=== PATIENT | female | born 1960 | race American Indian/Alaskan Native ===

== ENCOUNTER 2016-06-07 09:52 | Emergency (ER) | payer MEDICARE ==
--- NOTE | 2016-06-07 10:28 | Emergency Department Report ---
Chief Complaint: Dyspnea/Respdistress Stated Complaint: DONG Time Seen by Provider: 06/07/16 10:22 - HPI History of Present Illness: Patient is a 55 y/o female with history of sleep apnea and HTN who presents due to SOB 2 week. Patient denies any chest pain, vomiting or diaphoresis. Patient states that she has had a URI for 1 week and started having SOB last night. - ROS Review of Systems: no chest pain, no vomiting, no diaphoresis, no wheezing - Exam Physical Exam: no audible wheezing, audible rhonchi MSE screening note: Focused history and physical exam performed. Due to findings the following was ordered: ED Disposition for MSE Condition: Stable
[2016-06-07 10:57] LABS: Basophils % (Auto) 0.8 % (0.0-1.8); Eosinophils % (Auto) 1.9 % (0.0-4.3); Hematocrit 41.8 % (30.3-42.9); Hemoglobin 14.3 gm/dl (10.1-14.3); Mean Corpuscular HGB Conc 34 % (30-34); Mean Corpuscular Hemoglobin 32 pg (28-32); Mean Corpuscular Volume 93 fl (79-97); Platelet Count 319 K/mm3 (140-440); Red Blood Count 4.51 M/mm3 (3.65-5.03); Red Cell Distribution Width 12.6 % (13.2-15.2); White Blood Count 5.5 K/mm3 (4.5-11.0)
[2016-06-07 11:11] LABS: Anion Gap 17 mmol/L; Blood Urea Nitrogen 7 mg/dL (7-17); Calcium 9.7 mg/dL (8.4-10.2); Carbon Dioxide 24 mmol/L (22-30); Chloride 104.8 mmol/L (98-107); Glucose 94 mg/dL (65-100); Potassium 4.1 mmol/L (3.6-5.0); Sodium 142 mmol/L (137-145)
[2016-06-07] MEDS ORDERED: DELTASONE PO ONE (15:14)
--- NOTE | 2016-06-07 15:22 | Emergency Department Report ---
HPI - General Chief Complaint: Dyspnea/Respdistress Time Seen by Provider: 06/07/16 14:34 - HPI HPI: Room 25 The patient is a 55-year-old female presenting with a chief complaint of shortness of breath. The patient states for 1 week she says shortness of breath that feels consistent with her COPD. The patient states she is using albuterol but has not helped. Patient is to call that is productive of yellow sputum. Patient has subjective fever and rhinorrhea. Today the patient began gasping for air and EMS was called. EMS administered albuterol nebulized the patient states she currently feels better. The patient states she had a normal stress test last week Location: Lungs Duration: [see above] Quality: Shortness of breath consistent with COPD Severity: Moderate Modifying factors: [see above] Context: [see above] Mode of transportation: [not driving] ED Past Medical Hx - Past Medical History Previous Medical History?: Yes Hx Hypertension: Yes Hx Asthma: Yes Hx COPD: Yes Additional medical history: CHRONIC BACK PAIN. HIGH CHOLESTEROL - Surgical History Past Surgical History?: Yes Additional Surgical History: hernia repair 1968 - Family History Family history: no significant - Social History Smoking Status: Former Smoker (none 30 days) Substance Use Type: Non Opiate Pain, Prescribed - Medications Home Medications: Home Medications Medication Instructions Recorded Confirmed Last Taken Type ALBUTEROL Inhaler [Proair] 1 puff IH 01/12/13 01/12/13 03/19/13 History Amlodipine Besylate [Norvasc] 5 mg PO DAILY 01/12/13 01/12/13 03/19/13 History Hydrochlorothiazide [Hctz] 50 mg PO QDAY 01/12/13 01/12/13 03/19/13 History Meloxicam/Irr Cntr-Irr Cmb #2 15 mg PO QDAY 01/12/13 01/12/13 03/19/13 History [Comfort Pac-Meloxicam Kit] Potassium Chloride [Klor-Con] 10 meq PO QDAY 01/12/13 01/12/13 03/19/13 History traMADol [Ultram 50 MG tab] 50 - 100 mg PO Q8HR PRN #30 tablet 01/13/13 Rx Cyclobenzaprine [Flexeril 10 MG 10 mg PO TID PRN #14 tablet 02/24/14 Unknown Rx TAB] Acetaminophen/Codeine 1 tab PO Q6H PRN #14 tab 04/22/14 Unknown Rx [Acetaminophen-Codeine #3 TAB] Clindamycin [Clindamycin CAP] 300 mg PO Q8H 7 Days 04/22/14 Unknown Rx Promethazine [Phenergan TAB] 25 mg PO Q6H PRN #14 tablet 09/10/14 Unknown Rx Pantoprazole [Protonix] 40 mg PO QDAY #20 tablet 09/16/14 Unknown Rx HYDROcodone/APAP 5-325 [[place] 1 each PO Q6HR PRN #14 tablet 10/19/14 Unknown Rx 5-325 mg TAB] Ondansetron [Zofran TAB] 4 mg PO Q8HR PRN #20 tablet 10/19/14 Unknown Rx Ibuprofen [Motrin 600 MG tab] 600 mg PO Q8H PRN #30 tablet 04/16/15 Unknown Rx traMADol [Ultram 50 MG tab] 50 mg PO Q6HR PRN #15 tablet 04/16/15 Unknown Rx ALBUTEROL Inhaler [ProAir HFA 2 puff IH QID PRN #1 inhalation 09/16/15 Unknown Rx Inhaler] Azithromycin [Zithromax TAB] 500 mg PO QDAY #5 tablet 09/16/15 Unknown Rx predniSONE [Deltasone] 20 mg PO QDAY #5 tab 09/16/15 Unknown Rx Albuterol Sulfate [Albuterol 0.63% 0.63 mg IH TID PRN #90 ml 06/07/16 Unknown Rx NEBS] Azithromycin [Zithromax Z-AZAM] 0 mg PO DAILY #6 tab 06/07/16 Unknown Rx Prednisone [predniSONE 10 mg 10 mg PO .TAPER #1 tab.ds.pk 06/07/16 Unknown Rx (6-Day Pack, 21 Tabs)] traMADol [Ultram] 50 mg PO Q6HR PRN #10 tablet 06/07/16 Unknown Rx ED Review of Systems ROS: Stated complaint: DONG Other details as noted in HPI Comment: All other systems reviewed and negative Constitutional: fever (subjective) Eyes: denies: eye pain, eye discharge, vision change ENT: congestion Respiratory: cough, shortness of breath, wheezing Cardiovascular: denies: palpitations Endocrine: no symptoms reported Gastrointestinal: denies: abdominal pain, nausea, diarrhea Musculoskeletal: denies: back pain, joint swelling, arthralgia Skin: denies: rash, lesions Neurological: denies: headache, weakness, paresthesias Psychiatric: denies: anxiety, depression Hematological/Lymphatic: denies: easy bleeding, easy bruising Physical Exam - Physical Exam Vital Signs: Vital Signs 06/07/16 10:31 Temperature 98.7 F Pulse Rate 94 H Respiratory 22 Rate Blood Pressure 112/85 O2 Sat by Pulse 99 Oximetry Physical Exam: GENERAL: The patient is well-developed well-nourished female sitting on stretcher not appearing to be in acute distress. [] HEENT: Normocephalic. Atraumatic. Extraocular motions are intact. Patient has moist mucous membranes. NECK: Supple. Trachea midline CHEST/LUNGS: Clear to auscultation. There is no respiratory distress noted. HEART/CARDIOVASCULAR: Regular. There is no tachycardia. There is no gallop rub or murmur. ABDOMEN: Abdomen is soft, nontender. Patient has normal bowel sounds. There is no abdominal distention. SKIN: There is no rash. There is no edema. There is no diaphoresis. NEURO: The patient is awake, alert, and oriented. The patient is cooperative. The patient has normal speech MUSCULOSKELETAL: There is no evidence of acute injury. ED Course Vital Signs 06/07/16 10:31 Temperature 98.7 F Pulse Rate 94 H Respiratory 22 Rate Blood Pressure 112/85 O2 Sat by Pulse 99 Oximetry ED Medical Decision Making - Lab Data Result diagrams: 06/07/16 10:36 06/07/16 10:36 Laboratory Tests 06/07/16 06/07/16 10:36 10:36 WBC 5.5 RBC 4.51 Hgb 14.3 Hct 41.8 MCV 93 MCH 32 MCHC 34 RDW 12.6 L Plt Count 319 Lymph % (Auto) 33.5 [place] % (Auto) 8.8 H Eos % (Auto) 1.9 Baso % (Auto) 0.8 Lymph # 1.8 [place] # 0.5 Eos # 0.1 Baso # 0.0 Seg Neutrophils % 55.0 Seg Neutrophils # 3.0 Sodium 142 Potassium 4.1 Chloride 104.8 Carbon Dioxide 24 Anion Gap 17 BUN 7 Creatinine 0.7 Estimated GFR > 60 BUN/Creatinine Ratio 10.00 Glucose 94 Calcium 9.7 Troponin T < 0.010 - EKG Data -: EKG Interpreted by Me EKG shows normal: sinus rhythm Rate: normal - EKG Data When compared to previous EKG there are: previous EKG unavailable Interpretation: normal EKG - Radiology Data Radiology results: image reviewed (chest x-ray) interpreted by me: Chest x-ray-no focal infiltrates, no pneumothorax - Differential Diagnosis pneumonia, COPD exacerbation, bronchitis Critical care attestation.: If time is entered above; I have spent that time in minutes in the direct care of this critically ill patient, excluding procedure time. ED Disposition Clinical Impression: Acute bronchitis, Shortness of breath, COPD exacerbation Disposition: DISCHARGED TO HOME OR SELFCARE Is pt being admited?: No Does the pt Need Aspirin: No Condition: Stable Instructions: Chronic Obstructive Pulmonary Disease (ED), Acute Bronchitis (ED) Additional Instructions: Return to the emergency department immediately should you develop worsening symptoms, fever, inability to tolerate food or liquid or any other concerns. Prescriptions: Albuterol Sulfate [Albuterol 0.63% NEBS] 0.63 mg IH TID PRN #90 ml PRN Reason: Wheezing Azithromycin [Zithromax Z-AZAM] 0 mg PO DAILY #6 tab Prednisone [predniSONE 10 mg (6-Day Pack, 21 Tabs)] 10 mg PO .TAPER #1 tab.ds.pk traMADol [Ultram] 50 mg PO Q6HR PRN #10 tablet PRN Reason: Pain Referrals: PRIMARY CARE, [Primary Care Provider] - 3-5 Days
[2016-06-07 16:53] VITALS: BP 132/92
--- NOTE | 2016-06-08 11:09 | XRay Report ---
ROUTINE CHEST, TWO VIEWS: HISTORY: Shortness of breath. The trachea, heart, mediastinal contour, lung jones and bony thorax are unremarkable. IMPRESSION: Unremarkable chest x-ray. No significant change since 09/15/15.
== END 2016-06-07 15:55 | disposition home or self-care (01) ==
LOC: ED 09:52
DX: J44.1 Chronic obstructive pulmonary disease with (acute) exacerbation (principal); J20.9 Acute bronchitis, unspecified; J45.909 Unspecified asthma, uncomplicated; I10 Essential (primary) hypertension; G89.29 Other chronic pain; E78.00 Pure hypercholesterolemia, unspecified; Z87.891 Personal history of nicotine dependence
CPT/HCPCS: 36415; 71020; 80048; 84484; 85025; 93005; 93010; 99284; J7512

== ENCOUNTER 2016-07-22 18:22 | Emergency (ER) | payer MEDICARE ==
[2016-07-22 20:20] VITALS: BP 110/89
[2016-07-23] MEDS ORDERED: DELTASONE PO ONE (01:47)
[2016-07-23] MEDS ORDERED: PERCOCET 5/325 PO ONE (01:47)
--- NOTE | 2016-07-23 01:47 | Emergency Department Report ---
ED Eye Problem HPI - General Chief complaint: Eye Problems Stated complaint: EYE/BACK PAIN Time Seen by Provider: 07/23/16 00:32 Source: patient, family Mode of arrival: Ambulatory Limitations: No Limitations - History of Present Illness Initial comments: Patient here reports that she has chronic back pain prescription unhelpful. She is taking multiple medication she says she ran out of her prescription and needs a refill patient says she has pain management but transportation did not pick her up says she missed appointment twice. She reports back pain is 8 out of 10. Patient has a history of asthma COPD and high blood pressure with high cholesterol and chronic back pain. She said the [facility] to the hospital to get pain medication .she denies any numbness or tingling to extremities. Denies any urinary burning, frequency or urgency. She denies any nausea vomiting. She is also complaining that her left eye has been draining and swelling times one week. She denies any pain since that she's having a lot of tearing or coming from that eye and she history of back and said that she was supposed to have cataract surgery but it was canceled. Denies any decline in her vision. Denies any abdominal pain. Has any urinary burning frequency or urgency. Patient says she is here to get her pain medication because [facility] and she needs to have some pain medicine for her back she denies any recent trauma to either or back.. chief complaint: other (left eye drainage and back pain) Onset/Timin -: week(s) Onset Description: gradual, unknown Location: left eye Eye Symptoms: other (clear drainage from left eye) Severity scale (0 -10): 0 Context: other (cataract) Associated Symptoms: other (chronic back pain). denies: headache, neck pain, nausea/vomiting, cough, rhinorrhea, fever, shortness of breath Treatments Prior to Arrival: none - Related Data Home Medications Medication Instructions Recorded Confirmed Last Taken ALBUTEROL Inhaler [Proair] 1 puff IH 01/12/13 01/12/13 03/19/13 Amlodipine Besylate [Norvasc] 5 mg PO DAILY 01/12/13 01/12/13 03/19/13 Hydrochlorothiazide [Hctz] 50 mg PO QDAY 01/12/13 01/12/13 03/19/13 Meloxicam/Irr Cntr-Irr Cmb #2 15 mg PO QDAY 01/12/13 01/12/13 03/19/13 [Comfort Pac-Meloxicam Kit] Potassium Chloride [Klor-Con] 10 meq PO QDAY 01/12/13 01/12/13 03/19/13 Previous Rx's Medication Instructions Recorded Last Taken Type traMADol [Ultram 50 MG tab] 50 - 100 mg PO Q8HR PRN #30 tablet 01/13/13 Rx Cyclobenzaprine [Flexeril 10 MG 10 mg PO TID PRN #14 tablet 02/24/14 Unknown Rx TAB] Acetaminophen/Codeine 1 tab PO Q6H PRN #14 tab 04/22/14 Unknown Rx [Acetaminophen-Codeine #3 TAB] Clindamycin [Clindamycin CAP] 300 mg PO Q8H 7 Days 04/22/14 Unknown Rx Promethazine [Phenergan TAB] 25 mg PO Q6H PRN #14 tablet 09/10/14 Unknown Rx Pantoprazole [Protonix] 40 mg PO QDAY #20 tablet 09/16/14 Unknown Rx HYDROcodone/APAP 5-325 [[employer] 1 each PO Q6HR PRN #14 tablet 10/19/14 Unknown Rx 5-325 mg TAB] Ondansetron [Zofran TAB] 4 mg PO Q8HR PRN #20 tablet 10/19/14 Unknown Rx Ibuprofen [Motrin 600 MG tab] 600 mg PO Q8H PRN #30 tablet 04/16/15 Unknown Rx traMADol [Ultram 50 MG tab] 50 mg PO Q6HR PRN #15 tablet 04/16/15 Unknown Rx ALBUTEROL Inhaler [ProAir HFA 2 puff IH QID PRN #1 inhalation 09/16/15 Unknown Rx Inhaler] Azithromycin [Zithromax TAB] 500 mg PO QDAY #5 tablet 09/16/15 Unknown Rx predniSONE [Deltasone] 20 mg PO QDAY #5 tab 09/16/15 Unknown Rx Albuterol Sulfate [Albuterol 0.63% 0.63 mg IH TID PRN #90 ml 06/07/16 Unknown Rx NEBS] Azithromycin [Zithromax Z-AZAM] 0 mg PO DAILY #6 tab 06/07/16 Unknown Rx Prednisone [predniSONE 10 mg 10 mg PO .TAPER #1 tab.ds.pk 06/07/16 Unknown Rx (6-Day Pack, 21 Tabs)] traMADol [Ultram] 50 mg PO Q6HR PRN #10 tablet 06/07/16 Unknown Rx Allergies Allergy/AdvReac Type Severity Reaction Status Date / Time No Known Allergies Allergy Unverified 04/16/15 02:11 ED Review of Systems ROS: Stated complaint: EYE/BACK PAIN Other details as noted in HPI Comment: All other systems reviewed and negative Constitutional: denies: chills, fever Eyes: other (left eye drainage). denies: eye pain, eye discharge, vision change ENT: denies: ear pain, throat pain, congestion Respiratory: no symptoms reported. denies: cough, shortness of breath, SOB with exertion, SOB at rest, stridor, wheezing Cardiovascular: denies: chest pain, palpitations, edema, syncope Gastrointestinal: denies: abdominal pain, nausea, vomiting, diarrhea, constipation Genitourinary: denies: urgency, dysuria, frequency, hematuria, discharge Musculoskeletal: back pain. denies: joint swelling, arthralgia Skin: denies: rash Neurological: denies: headache, weakness, numbness, paresthesias, confusion, abnormal gait, vertigo ED Past Medical Hx - Past Medical History Previous Medical History?: Yes Hx Hypertension: Yes Hx Asthma: Yes Hx COPD: Yes Additional medical history: CHRONIC BACK PAIN. HIGH CHOLESTEROL - Surgical History Past Surgical History?: Yes Additional Surgical History: hernia repair 1967. Tubal - Family History Family history: hypertension - Social History Smoking Status: Former Smoker Substance Use Type: None - Medications Home Medications: Home Medications Medication Instructions Recorded Confirmed Last Taken Type ALBUTEROL Inhaler [Proair] 1 puff IH 01/12/13 01/12/13 03/19/13 History Amlodipine Besylate [Norvasc] 5 mg PO DAILY 01/12/13 01/12/13 03/19/13 History Hydrochlorothiazide [Hctz] 50 mg PO QDAY 01/12/13 01/12/13 03/19/13 History Meloxicam/Irr Cntr-Irr Cmb #2 15 mg PO QDAY 01/12/13 01/12/13 03/19/13 History [Comfort Pac-Meloxicam Kit] Potassium Chloride [Klor-Con] 10 meq PO QDAY 01/12/13 01/12/1313 History traMADol [Ultram 50 MG tab] 50 - 100 mg PO Q8HR PRN #30 tablet 01/13/13 Rx Cyclobenzaprine [Flexeril 10 MG 10 mg PO TID PRN #14 tablet 02/24/14 Unknown Rx TAB] Acetaminophen/Codeine 1 tab PO Q6H PRN #14 tab 04/22/14 Unknown Rx [Acetaminophen-Codeine #3 TAB] Clindamycin [Clindamycin CAP] 300 mg PO Q8H 7 Days 04/22/14 Unknown Rx Promethazine [Phenergan TAB] 25 mg PO Q6H PRN #14 tablet 09/10/14 Unknown Rx Pantoprazole [Protonix] 40 mg PO QDAY #20 tablet 09/16/14 Unknown Rx HYDROcodone/APAP 5-325 [[employer] 1 each PO Q6HR PRN #14 tablet 10/19/14 Unknown Rx 5-325 mg TAB] Ondansetron [Zofran TAB] 4 mg PO Q8HR PRN #20 tablet 10/19/14 Unknown Rx Ibuprofen [Motrin 600 MG tab] 600 mg PO Q8H PRN #30 tablet 04/16/15 Unknown Rx traMADol [Ultram 50 MG tab] 50 mg PO Q6HR PRN #15 tablet 04/16/15 Unknown Rx ALBUTEROL Inhaler [ProAir HFA 2 puff IH QID PRN #1 inhalation 09/16/15 Unknown Rx Inhaler] Azithromycin [Zithromax TAB] 500 mg PO QDAY #5 tablet 09/16/15 Unknown Rx predniSONE [Deltasone] 20 mg PO QDAY #5 tab 09/16/15 Unknown Rx Albuterol Sulfate [Albuterol 0.63% 0.63 mg IH TID PRN #90 ml 06/07/16 Unknown Rx NEBS] Azithromycin [Zithromax Z-AZAM] 0 mg PO DAILY #6 tab 06/07/16 Unknown Rx Prednisone [predniSONE 10 mg 10 mg PO .TAPER #1 tab.ds.pk 06/07/16 Unknown Rx (6-Day Pack, 21 Tabs)] traMADol [Ultram] 50 mg PO Q6HR PRN #10 tablet 06/07/16 Unknown Rx ED Physical Exam - General Limitations: No Limitations General appearance: alert, in no apparent distress - Head Head exam: Present: atraumatic, normocephalic, normal inspection - Expanded Eye Exam Expanded Eyelids: Normal Inspection: Left (bilateral lid normal) Pupils: Regular, Round: Bilateral, Reactive: Bilateral Sclera/Conjunctival: Normal Inspection: Bilateral Anterior chamber: Normal Inspection: Bilateral - ENT ENT exam: Present: normal exam, normal orophraynx, mucous membranes moist, TM's normal bilaterally, normal external ear exam - Neck Neck exam: Present: normal inspection, tenderness, full ROM. Absent: meningismus, lymphadenopathy - Respiratory Respiratory exam: Present: normal lung sounds bilaterally. Absent: respiratory distress, chest wall tenderness - Cardiovascular Cardiovascular Exam: Present: regular rate, normal rhythm, normal heart sounds - GI/Abdominal GI/Abdominal exam: Present: soft, normal bowel sounds. Absent: distended, tenderness, guarding, rebound, rigid - Extremities Exam Extremities exam: Present: normal inspection, full ROM, normal capillary refill. Absent: tenderness, pedal edema, joint swelling, calf tenderness - Back Exam Back exam: Present: normal inspection, full ROM. Absent: tenderness, CVA tenderness (R), CVA tenderness (L), muscle spasm, paraspinal tenderness, vertebral tenderness, rash noted - Expanded Back Exam Expanded Back exam: Absent: saddle anesthesia Back exam: Negative Straight Leg Raising: Left, Right - Neurological Exam Neurological exam: Present: alert, oriented X3, normal gait, reflexes normal. Absent: motor sensory deficit - Expanded Neurological Exam Expanded Neurological exam: Absent: innattentive, memory loss-remote event, memory loss- recent event, ataxia, receptive aphasia, expressive aphasia, total aphasia, tremor, protecting the airway Patient oriented to: Present: person, place, time Speech: Present: fluid speech Cranial nerves: EOM's Intact: Normal, Gag Reflex: Normal, Nystagmus: Normal, Facial Sensation: Normal Cerebellar function: Romberg: Normal Upper motor neuron: Pronator Drift: Normal Sensory exam: Upper Extremity Light Touch: Normal, Upper Extremity Temperature: Normal, UE 2 Point Discrimination: Normal, Lower Extremity Light Touch: Normal, Lower Extremity Temperature: Normal, LE 2 Point Discrimination: Normal Motor strength exam: RUE: 5, LUE: 5, RLE: 5, LLE: 5 DTR: bicep (R): 2+, bicep (L): 2+, tricep (R): 2+, tricep (L): 2+, knee (R): 2+ , knee (L): 2+, ankle (R): 2+, ankle (L): 2+ Best Eye Response ([place]): (4) open spontaneously Best Motor Response ([place]): (6) obeys commands Best Verbal Response ([place]): (5) oriented [place] Total: 15 - Psychiatric Psychiatric exam: Present: normal affect, normal mood - Skin Skin exam: Present: warm, dry, intact, normal color. Absent: rash ED Course Vital Signs 07/22/16 19:20 Temperature 98.0 F Pulse Rate 99 H Respiratory 20 Rate Blood Pressure 110/89 [Right] O2 Sat by Pulse 100 Oximetry - Reevaluation(s) Reevaluation #1: 07/23/16 02:02 Patient stable and refused Tylenol in triage area. ED Medical Decision Making - Medical Decision Making ED course: Patient here for refills on multiple pain medication that she says she goes to pain clinic for. She said that she missed her pain doctor appointment twice because transportation didn't pick her up. He is complaining of lower back pain that is not new she says she passed pain everyday and she would like a refill on her medication. Explained to patient that he usually if one is seeing a the pain doctor they have to sign a contract stating that he cannot get pain medication but from that pain clinic. I discussed with patient because she has family here that I can give her 2 Percocet but I cannot give her a prescription for narcotics she will have to get that from her pain doctor. Discussed with him a strongest taking history is Ultram. She became mad. She is also complaining of that her left eye has been draining watery liquid over the last week and she has cataracts. She denies any eye pain or eye injury.. I was unable to do fluorescein staining and Wood lamp exam because patient decided to walk out of the emergency room very fast and speaking ED Despite her back pain. Patient was upset because I told her I cannot give her a prescription for narcotic I can only give her a prescription for Ultram which is a narcotic but is not going to be Percocet for [employer]. She was verbally abusive as she walked out of the emergency room. Patient eloped from emergency room. Critical care attestation.: If time is entered above; I have spent that time in minutes in the direct care of this critically ill patient, excluding procedure time. ED Disposition Clinical Impression: Acute exacerbation of chronic low back pain, Swelling of left eye Disposition: ELOPED Is pt being admited?: No Does the pt Need Aspirin: No Condition: Stable Referrals: MASSIEL GIRARD [Other] - 3-5 Days
[2016-07-23] MEDS ORDERED: FUL-GLO OP ONE (01:48)
[2016-07-23] MEDS ORDERED: TETRACAINE 0.5% TP STA (01:48)
== END 2016-07-23 01:50 | disposition left against medical advice (07) ==
LOC: ED 18:22
DX: M54.5 Low back pain (principal); G89.29 Other chronic pain; H57.8 Other specified disorders of eye and adnexa; I10 Essential (primary) hypertension; J44.9 Chronic obstructive pulmonary disease, unspecified; J45.909 Unspecified asthma, uncomplicated; E78.00 Pure hypercholesterolemia, unspecified; Z87.891 Personal history of nicotine dependence
CPT/HCPCS: 99281; J7512

== ENCOUNTER 2017-02-16 08:40 | Outpatient (CLI) | payer MEDICARE ==
--- NOTE | 2017-02-16 10:45 | Mammography Report ---
Screening mammogram: Routine views demonstrate a generally fatty replaced breast pattern. Several subcentimeter sized circumscribed nodules are seen in both breasts. The breast pattern is not otherwise remarkable. CAD used. Impression: Nodular breast pattern. Recommendation: Prior exams are being requested for comparison. Final report and recommendation will be issued when comparison is made. BI-RADS CATEGORY: 0 = Needs additional imaging evaluation ACR BI-RADS MAMMOGRAPHIC CODES: 0 = Needs additional imaging evaluation; 1 = Negative; 2 = Benign; 3 = Probably benign; 4 = Suspicious; 5 = Malignant; 6 = Known biopsy-proven malignancy COMMENT: 1. Dense breast tissue, i.e., adenosis, fibrocystic changes, etc., may obscure an underlying neoplasm. 2. Approximately 10% of cancers are not detected with mammography. 3. A negative mammography report should not delay biopsy if a clinically suspicious mass is present.
== END 2017-02-16 08:41 | disposition home or self-care (01) ==
LOC: MAMMO 08:40
PROVIDERS: ATTEND Family Medicine
DX: Z12.31 Encounter for screening mammogram for malignant neoplasm of breast (principal)
CPT/HCPCS: 77067; G0202